=== PATIENT | male | born 1945 | race Caucasian/White ===

== ENCOUNTER → 2023-10-17 06:52 | Outpatient (REF) | payer MEDICARE, SELFPAY | LOC: RAD 06:52 | PROVIDERS: ATTENDING PHYSICIAN Nurse Practitioner | DX: I71.43 Infrarenal abdominal aortic aneurysm, without rupture (principal) | CPT/HCPCS: 76770 ==

== ENCOUNTER → 2023-10-26 14:07 | Outpatient (REF) | payer MEDICARE, SELFPAY | LOC: RAD 14:07 | PROVIDERS: ATTENDING PHYSICIAN Physician Assistant Medical | DX: R60.0 Localized edema (principal); R58 Hemorrhage, not elsewhere classified; T14.8XXA Other injury of unspecified body region, initial encounter; S86.111S Strain of other muscle(s) and tendon(s) of posterior muscle group at lower leg level, right leg, sequela | CPT/HCPCS: 76882; 93971 ==